=== PATIENT | male | born 1975 | race Caucasian/White ===

== ENCOUNTER 2019-03-31 20:19 | Emergency (ER) | payer MEDICAID, SELFPAY ==
[2019-03-31 20:22] VITALS: BP 119/78; PULSE 70; RESP 18; TEMP 36.6; O2SAT 97
--- NOTE | 2019-03-31 20:43 | W.ED.GENAD ---
Discharge Plan Disposition Patient Disposition: HOME Condition: Good Discharge Details Chief Complaint: Cellulitis Clinical Impression: Abscess of neck Primary Care Provider: Paulo Gresham ED Provider: Talia Fink Home Meds and New Rx's Prescriptions: New cephalexin [Keflex] 500 mg capsule 500 mg PO QID Qty: 20 RF: 0 Discharge Instructions Instructions: Cephalexin (By mouth), Abscess (ED) Additional Instructions: Encourage hydration. Tylenol and ibuprofen as needed for discomfort. Please keep the abscess covered. Allow this to continue to drain. It is incised today. Please take the Keflex as prescribed. Even if symptoms improve, please take the entire course. Please follow-up with primary care on Friday for reevaluation. If you develop spreading of the redness, increased pain, fever/chills or other new/worsening symptoms please seek care urgently once again. Referrals: Paulo Gresham MD [Primary Care Provider] - Discharge Data Discharge Date/Time-TO BE ENTERED AT DEPARTURE: 03/31/19 21:34 Medical Decision Making Patient is a 43-year-old male presents today with chief complaint of swelling and pain to left side of his neck. He reports that 5 days ago he noted a small area consistent with a pimple in this area. States that he did pop this initially. Reports that the following day he noted to be larger. He continued to use warm compresses and attempted to drain this but this is unsuccessful at that time. States that despite warm compresses and trying to treat this at home, the swelling has continued to increase. He has noted a scant amount of drainage today on a Band-Aid. Denies any fevers or chills. No difficulty swallowing. No change in voice, no deep breathing. Denies actually being able to feel this unless palpating the area. On exam, he has a 1.5 cm area consistent with abscess with surrounding cellulitis. I do not see any evidence of deep structure involvement. This is mobile and seems to be limited to the skin. Patient is afebrile reports is been afebrile at home. Patient I discussed risk/benefits as well as expected procedural steps of drainage. He voiced understanding and wished to proceed. Please see procedure note. This was done using 1% lidocaine plain. He tolerated this well. The area was probed with a curved hemostat to break up loculations and flushed with sterile saline. Thick yellow discharge was expressed. A wound culture was sent. Patient will be placed on Keflex. Encourage hydration. We discussed new/worsening symptoms that should prompt him to seek care urgently once again. Advise close follow-up with primary care for reevaluation. He will call them tomorrow to schedule follow-up within the next 48 hours. All his questions and concerns were addressed and he is in agreement this plan. Patient is low risk for MRSA infection will plan to cover with Keflex. HPI General Mode of arrival: ambulatory. Date/Time Provider Initiated Documentation: 03/31/19 20:42. Limitations to Documentation: no limitations. Information obtained by: patient and RN notes reviewed. History of Present Illness 43 year old M presents to the emergency department with the chief complaint of cellulitis left side of neck, described as mild, with intensity rated at 2. Quality is described as aching, and is localized to the neck. Patient reports no radiation. Patient started experiencing this day(s) (5) and it has been constant. No relieving factors improve symptom(s), No exacerbating factors reported . Patient notes no other symptoms.; denies chest pain, cough, fever/chills, nausea/vomiting and shortness of breath. Patient did receive the following treatments prior to arrival, none Related Data Home Medications Medication Instructions Recorded Confirmed cephalexin [Keflex] 500 mg PO QID #20 cap 03/31/19 Previous Rx's Medication Instructions Recorded cephalexin [Keflex] 500 mg PO QID #20 cap 03/31/19 Allergies Allergy/AdvReac Type Severity Reaction Status Date / Time No Known Allergies Allergy Unverified 03/31/19 20:25 General Stated Complaint: Cellulitis JO-ANN: 4 Review of Systems Constitutional Constitutional: Reports as per HPI, Denies chills and Denies fever(s) ENT Ears, Nose, Mouth, and Throat: Reports as per HPI, Denies change in voice, Denies dysphagia, Denies ear discharge, Denies otalgia, Denies hoarseness, Denies mouth pain, Denies nasal congestion, Denies sinus pressure, Denies sore throat and Denies throat swelling Cardiovascular Cardiovascular: Denies chest pain, Denies dyspnea and Denies dyspnea on exertion Respiratory Respiratory: Denies chest congestion, Denies cough, Denies hemoptysis, Denies pain on inspiration, Denies pain with cough, Denies dyspnea, Denies dyspnea on exertion, Denies stridor and Denies wheezing Gastrointestinal Gastrointestinal: Denies dysphagia Musculoskeletal Musculoskeletal: Reports as per HPI Integumentary/Breasts Skin/Breast: Reports as per HPI Neurologic Neurologic: Reports as per HPI, Denies sensory deficit and Denies paresthesias Allergic/Immunologic Allergic/Immunologic: Denies throat swelling and Denies wheezing [facility] Social History Smoking/Tobacco Use Status: Former Tobacco Use Drug use: Daily Substance use type: marijuana Do you feel safe in your relationship?: Yes Exam Const General: cooperative, healthy appearing, comfortable, no acute distress and well developed Nutritional Appearance: average body habitus and well nourished Orientation: alert and awake Neck Neck: not normal to visual inspection, full ROM, no lymphadenopathy, no meningeal signs, trachea midline, supple and tender (at abscess) Thyroid: thyroid normal and asymmetrical Carotids: normal carotid upstroke Lymphatic: no lymphadenopathy noted Neck images: 1. 1.5cm area of focal swelling that is fluctuant, erythematous, small area that appears to have been draining. Findings consistent with abscess. Resp Effort & Inspection: normal respiratory effort, able to speak in complete sentences and no respiratory distress Cardio Rate: regular rate Rhythm: regular rhythm Skin General skin exam: erythema, fluctuance and no hypertrophy Neuro General: alert and awake Cognition: normal cognition Speech: speech normal Gait: normal gait Sensory Exam: no sensory deficits noted Psych Appearance: grossly normal and well kempt Mental Status: mental status grossly normal Speech and Movement: speech and movement normal Course Vital Signs Vital signs: Vital Signs Temperature 36.6 C 03/31/19 20:22 Pulse 70 03/31/19 20:22 Respiratory Rate 18 03/31/19 20:22 Blood Pressure 119/78 03/31/19 20:22 Pulse Oximetry 97 03/31/19 20:22 Temperature 36.6 C 03/31/19 20:22 Temperature Source Skin 03/31/19 20:22 Pulse 70 03/31/19 20:22 Respiratory Rate 18 03/31/19 20:22 Respiratory Effort Non-Labored 03/31/19 20:25 Blood Pressure 119/78 03/31/19 20:22 Blood Pressure Position Sitting 03/31/19 20:22 Pulse Oximetry 97 10/02/19 20:22 Oxygen Delivery Method Room Air 03/31/19 20:22 Oxygen Flow Rate 0 03/31/19 20:22 Pain Level 2 03/31/19 20:22 Procedures Abscess I/D Site: Neck Side (if applicable): Left Sedation/analgesia: None Local Anesthetic: Lidocaine 1% Amount of anesthesia used (mL): 3 Technique: Incised with #11 Blade Amount of fluid expressed (mL): 3 Irrigation: Yes Packing used?: None
[2019-03-31] MEDS: Cephalexin 500 MG CAP PO ×2 (21:28)
== END 2019-03-31 21:34 | disposition home or self-care (01) ==
PROVIDERS: Emergency Provider Physician Assistant; PCP General Practice
DX: L02.11 Cutaneous abscess of neck (principal)
CPT/HCPCS: 10060; 87077; 99283; 87070; 87186; 87205

== ENCOUNTER 2019-12-18 09:15 | Emergency (ER) | payer MEDICAID, SELFPAY ==
[2019-12-18 09:21] VITALS: BP 112/72; PULSE 82; TEMP 37; O2SAT 96
--- NOTE | 2019-12-18 09:42 | ED.GENADUL_ITS ---
Discharge Plan Disposition Patient Disposition: HOME Condition: Stable Discharge Details Chief Complaint: Sorethroat Clinical Impression: Strep throat Primary Care Provider: None,None ED Provider: Yaa Mckinley Home Meds and New Rx's Prescriptions: New penicillin V potassium 500 mg tablet 500 mg PO BID Qty: 20 RF: 0 No Action cephalexin [Keflex] 500 mg capsule 500 mg PO QID Qty: 20 RF: 0 Discharge Instructions Instructions: Strep Throat (ED) Additional Instructions: Warm salt water rinses if needed. Use Motrin or Tylenol for aches if needed. Antibiotic as prescribed. Rest activities as tolerated. Be sure to replace your toothbrush on day 2 or 3 of treatment as well as day 10 as discussed. For any worsening, concerns or alarming symptoms have immediate reevaluation in the emergency room. Expect improvement in the next 2 to 3 days. Follow-up with PCP for recheck for any persistence of symptoms lasting greater than 3 to 5 days Medical Decision Making Pleasant 44-year-old patient exposed to his daughter whom he lives with who has positive strep throat and did test positive a few days ago. Patient has had onset of sore throat for the last 2 days with no associated difficulty breathing of shortness of breath or wheezing. Patient has no cough, shortness of breath. Patient denies fever chills. Patient's only complaint is sore throat and concern for likely strep given his exposure to daughter. Patient has been able to eat and drink without difficulty. Appears well-hydrated. Presents for concern of antibiotic. Again patient has no sign of complication due to strep. Patient does have mild pharyngeal erythema noted on exam and cervical lymphadenopathy otherwise has no complaints. Vital signs reviewed and are stable. We will plan to provide antibiotic for strep coverage. Will defer any strep testing as he has household contact with strep. Patient agrees to this plan of care. Discussed precautions, [place] toothbrush and start management at home. Patient also put on follow-up list for new PCP as he PCP retired and he currently has no local provider The patient was stable and requested discharge. Prior to discharge, my usual and customary return precautions were reviewed with the patient - this included follow-up instructions and reasons to return to the Emergency Department if conditions worsens, does not improve as expected, or other new concerns arise. HPI General Date/Time Provider Initiated Documentation: 12/18/19 09:26 . HPI Narrative: This is a 44-year-old patient presenting to the emergency room for complaints of sore throat. Patient reports onset of sore throat for the last 2 days. Denies any voice change or trismus. Patient does report that his daughter currently has strep throat at home. She had a positive strep test and is currently taking antibiotics. Patient denies any headache or dizziness, fevers or chills, malaise or body aches. Denies any cough, difficulty breathing shortness of breath or wheezing. Denies rash. Again patient is able to eat and drink but reports dryness and a sore throat noted on the right. Patient denies nausea, vomiting, diarrhea or bowel change. Patient denies any other concerns or complaints but is requesting antibiotics. Patient has no local PCP currently as his PCP recently retired and was unable to get antibiotics over the phone. Related Data Home Medications Medication Instructions Recorded Confirmed cephalexin [Keflex] 500 mg PO QID #20 cap 03/31/19 penicillin V potassium 500 mg PO BID #20 tab 12/18/19 Previous Rx's Medication Instructions Recorded cephalexin [Keflex] 500 mg PO QID #20 cap 03/31/19 penicillin V potassium 500 mg PO BID #20 tab 12/18/19 Allergies Allergy/AdvReac Type Severity Reaction Status Date / Time No Known Allergies Allergy Unverified 03/31/19 20:25 General Stated Complaint: Sorethroat JO-ANN: 5 Review of Systems All systems reviewed & are unremarkable except as noted in HPI and below PFSH Social History Smoking/Tobacco Use Status: Former Tobacco Use Drug use: Daily Substance use type: marijuana Do you feel safe in your relationship?: Yes Exam Narrative Exam Narrative: CONST: Healthy appearing patient, in no acute distress. Well hydrated. Alert and oriented. HENMT: Head nomocephalic, normal to inspection. Atraumatic. Hearing grossly normal. External ear canals normal bilaterally. Mild erythema of the left TM. Pharyngeal erythema noted without exudates. Uvula is midline. No asymmetry. No significant tonsillar swelling. Tongue appears normal. EYES: General normal appearance. Alignment normal. Eyelids normal. Conjunctiva normal. NECK: Normal visual inspection. FROM. Trachea midline. No Midline tenderness. cervical lymphadenopathy noted bilaterally CHEST: Normal insepection of the chest. RESP: Normal respiratory effort. Speaking full sentences. No cough. No audible wheezing. No retractions. Breath sounds clear, full and equal bilaterally. No wheezing, rhonchi or rales. CARDIO: No JVD. No murmur, regular rate and rhythm. MUSCULOSKELETAL: Normal Gait. FROM of all extremities. SKIN: Normal. Dry. No rashes. NEURO: Alert and awake. Speech clear. PSYCH: Normal affect. Cooperative. Course Vital Signs Vital signs: Vital Signs Temperature 37.0 C 12/18/19 09:21 Pulse 82 12/18/19 09:21 Blood Pressure 112/72 12/18/19 09:21 Pulse Oximetry 96 12/18/19 09:21 Temperature 37.0 C 12/18/19 09:21 Temperature Source Temporal Artery Scan 12/18/19 09:21 Pulse 82 12/18/19 09:21 Blood Pressure 112/72 12/18/19 09:21 Blood Pressure Position Sitting 12/18/19 09:21 Pulse Oximetry 96 12/18/19 09:21 Oxygen Delivery Method Room Air 12/18/19 09:21 Oxygen Flow Rate 0 12/18/19 09:21 Pain Level 3 12/18/19 09:21
== END 2019-12-18 09:46 | disposition home or self-care (01) ==
PROVIDERS: Emergency Provider Physician Assistant
DX: J02.0 Streptococcal pharyngitis (principal); Z87.891 Personal history of nicotine dependence
CPT/HCPCS: 87880; 99283

== ENCOUNTER 2020-01-19 15:32 | Emergency (ER) | payer MEDICAID, SELFPAY ==
[2020-01-19 15:36] VITALS: BP 130/80; PULSE 69; RESP 14; TEMP 36.7; O2SAT 97
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
== END 2020-01-19 17:19 | disposition home or self-care (01) ==
PROVIDERS: Emergency Provider Emergency Medicine
DX: S69.91XA Unspecified injury of right wrist, hand and finger(s), initial encounter (principal); R93.7 Abnormal findings on diagnostic imaging of other parts of musculoskeletal system; Y04.0XXA Assault by unarmed brawl or fight, initial encounter
CPT/HCPCS: 29125; 99283; 73140; L3807

== ENCOUNTER 2023-10-30 09:54 | Observation (INO) | payer MEDICAID, SELFPAY ==
[2023-10-30] VITALS (10 sets, daily range): BP systolic 94–122; BP diastolic 54–95; PULSE 56–90; RESP 14–20; TEMP 36–37.2; O2SAT 94–100; BMI 25.8
--- NOTE | 2023-10-30 10:30 | DI.CT_ITS ---
Exam(s) CT ABDOMEN PELVIS W EXAM: CT ABDOMEN PELVIS W CLINICAL HISTORY: concern for rectal abscess v thrombosed hemorrhoid. TECHNIQUE: Imaging Protocol: Axial computed tomography images with coronal and sagittal reformatted images were created and reviewed CONTRAST MATERIAL: Intravenous: Omnipaque 350 Contrast volume:100 ml Oral: no COMPARISON: No exams were available for comparison FINDINGS: ABDOMEN and PELVIS: Lung Bases: No acute findings. Liver: Normal density. No measurable mass. Gallbladder and biliary tract: No radiodense calculus or biliary dilation. Pancreas: Normal density. No abnormal calcifications or inflammatory process. No evidence of mass. Spleen: Normal. Kidneys: Normal size, contour and axis. No radiodense stones. No obstructive uropathy. No suspicious masses seen. Adrenal glands: No masses seen. Vasculature: Abdominal aorta non-dilated. Soft tissues: Posterior perianal abscess measuring 2.4 x 3.1 by 4 cm. Bladder: No gross wall thickening. No calculi.No focal mass. Bowel: No obstruction. No bowel wall thickening. Appendix normal. Peritoneal cavity: No ascites. No focal collection or mesenteric inflammatory response. Bones: Unremarkable for age. Reproductive organs: Within normal limits. Lymph nodes: Unremarkable. IMPRESSION:: 4 centimeter perianal abscess. Findings called to Dr. Howell of the emergency department. RADIATION DOSE DELIVERED: 792.01mGy.cm Total DLP DATA REPOSITORY: All CT scans at this facility are submitted to the National Radiology Data Registry (NRDR) Dose Index Registry (DIR) with the [employer] ([employer]). RADIATION OPTIMIZATION: All CT scans at this facility use at least one of these dose optimization te chniques: automated exposure control; mA and/or kV adjustment per patient size (includes targeted exa ms where dose is matched to clinical indication); or iterative reconstruction.
--- NOTE | 2023-10-30 10:40 | ED.GENADUL_ITS ---
Discharge Plan Disposition Patient Disposition: Admit to [facility] Condition: Stable Discharge Details Chief Complaint: Orthopedic Clinical Impression: Perirectal abscess Primary Care Provider: None,None ED Provider: Juanjo Howell Home Meds and New Rx's Prescriptions: No Action No Known Home Meds HPI General Date/Time Provider Initiated Documentation: 10/30/23 10:03 . HPI Narrative: 48-year-old male presents with 1 week of perianal discomfort, feels a swelling in that region. Denies fevers chills nausea vomiting Related Data Home Medications Medication Instructions Recorded Confirmed Unknown [No Known Home Meds] 01/19/20 10/30/23 Allergies Allergy/AdvReac Type Severity Reaction Status Date / Time No Known Allergies Allergy Unverified 10/30/23 10:00 General Stated Complaint: Orthopedic JO-ANN: 4 Review of Systems Narrative: Review of Systems Constitutional: negative Eyes: negative ENT: negative Cardiovascular: negative Respiratory: negative Gastrointestinal: Perirectal pain : negative Musculoskeletal: negative Skin: negative Neurologic: negative Psych: negative Exam Narrative Exam Narrative: Physical Examination General: alert, awake, cooperative, resting comfortably, no acute distress HEENT: normocephalic, atraumatic; PERRL, EOM intact, conjunctiva normal; no nasal discharge; moist mucous membranes, oral and pharyngeal mucosa normal, tolerating secretions Neck: supple, trachea midline; full ROM Chest: normal to inspection Respiratory: normal respiratory effort, speaking in full sentences, clear to auscultation, no wheezing, rales or rhonchi Cardiac: regular rate, regular rhythm, S1S2 intact, no murmurs rubs or gallops GI: abdomen soft, non-tender, non-distended; no palpable mass or hepatosplenome alexis; 3 cm firm flesh-colored mildly ballotable mass at 6 o'clock position perianal region with extension into rectal vault, no surrounding induration or erythema Skin: no lesions, rashes or trauma appreciated Neuro: AAOx3, normal speech, moving all extremities Psych: Appropriate mood and affect Course Vital Signs Vital signs: Vital Signs Pulse 90 10/30/23 09:57 Respiratory Rate 18 10/30/23 09:57 Blood Pressure 122/95 H 10/30/23 09:57 Pulse Oximetry 100 10/30/23 09:57 Pulse 90 10/30/23 09:57 Respiratory Rate 18 10/30/23 09:57 Respiratory Effort Normal, Non-Labored 10/30/23 10:00 Blood Pressure 122/95 H 10/30/23 09:57 Blood Pressure Position Sitting 10/30/23 09:57 Pulse Oximetry 100 10/30/23 09:57 Oxygen Delivery Method Room Air 10/30/23 09:57 Oxygen Flow Rate 0 10/30/23 09:57 Pain Level 6 10/30/23 09:57 Medical Decision Making 48-year-old male presents with 1 week of perianal discomfort,3 cm firm flesh- colored mildly ballotable mass at 6 o'clock position perianal region with extension into rectal vault, no surrounding induration or erythema; consider thrombosed external hemorrhoid versus perianal abscess versus pararectal abscess. Will obtain screening labs, CT abdomen pelvis to assess extent of peritoneal findings. Afebrile nontoxic hemodynamically stable. 12: 35 CT evidence of perirectal abscess. Starting on Zosyn, fluids, NPO. Discussed case with surgeon Dr. Waggoner for evaluation for operative I&D Quality:SDOH Health Related Social Needs: No Data to Display PFSH All Active Problems (Updated 10/30/23 @ 12:36 by Juanjo Howell MD) Perirectal abscess (Acute) Social History Smoking/Tobacco Use Status: Former Tobacco Use Smoking risk assessment performed?: Yes Alcohol Intake: current Drug use: Daily Substance use type: marijuana Do you feel safe at home: Yes Do you feel safe in your relationship?: Yes
[2023-10-30 10:57] LABS: Abs Immature Grans 0.04 10^3/uL (0.0-0.06); Absolute Eosinophil Count 0.04 10^3/uL (0.0-0.7); Absolute Lymphocyte Count 2.09 10^3/uL (1.2-3.4); Absolute Monocyte Count 1.09 10^3/uL (0.1-0.8); Absolute Neutrophil Count 10.86 10^3/uL (1.2-6.7); Basophils % 0.1 %; Eosinophils % 0.3 %; HCT 39.4 % (40.0-50.0); Immature Grans % 0.3 %; Lymphocytes % 14.8 %; MCH 31.3 pg (27.0-33.0); MCV 95 fL (80-95); MPV 9.4 fL (8.0-11.0); Monocytes % 7.7 %; Neutrophils % 76.8 %; Platelet Count 393 10^3/uL (130-400); RBC 4.16 10^6/uL (4.36-5.78); RDW 13.2 % (11.8-14.1); RDW-SD 46.1 fL; WBC 14.14 10^3/uL (4.4-10.8)
[2023-10-30 11:01] LABS: Absolute Basophil Count 0.01 10^3/uL (0.0-0.2)
[2023-10-30 11:14] LABS: ALT 41 U/L (16-63); AST 23 U/L (15-37); Albumin 3.7 g/dL (3.4-5.0); Alkaline Phosphatase 157 U/L (46-116); BUN 14 mg/dL (7-18); Bilirubin, Total 0.5 mg/dL (0.2-1.0); CREATININE 1.1 mg/dL (0.70-1.30); Chloride 105 mmol/L (98-107); Estimated GFR 81.78 (mL/min/1.73m2); Glucose 118 mg/dL (74-106); Potassium 4.2 mmol/L (3.5-5.1); Sodium 143 mmol/L (136-145); Total Protein 7.4 g/dL (6.4-8.2)
[2023-10-30] MEDS: Normal Saline - Diluent 50 ML VIAL IJ (11:47)
[2023-10-30] MEDS: Omnipaque 350 MG/ML 500 ML BTL-Imaging package IJ (11:49)
[2023-10-30] MEDS: Normal Saline 1,000 ML 1000 ML IV (12:45)
[2023-10-30] MEDS: PIPERACILLIN/TAZO 3.375 GM in Normal Saline 50 ML IVPB (12:45)
--- NOTE | 2023-10-30 13:00 | ANES.PREOP_ITS ---
General Info Date of Service Date Performed: 10/30/23 Height: 5 ft 6 in Weight: 72.575 kg Body Mass Index (BMI): 25.8 Surgical Procedure: Operation Date: 10/30/23 13:10 Proposed Procedure Side Surgeon p Anorectal EUA w/ I&D Abcsess Trevor Waggoner MD Meds Allergies and Home Medications Allergies Allergy/AdvReac Type Severity Reaction Status Date / Time No Known Allergies Allergy Unverified 10/30/23 10:00 Home Medication Medication Instructions Recorded Unknown [No Known Home Meds] 01/19/20 Current Visit Medications: Current Medications Generic Name Dose Route Start Last Admin Trade Name Freq PRN Reason Stop Dose Admin Piperacillin Sod/Tazobactam 50 mls @ 100 mls/hr 10/30/23 12:33 10/30/23 12:45 Sod 3.375 gm/ Sodium Chloride IVPB 10/30/23 13:02 100 mls/hr NOW ONE Administration Sodium Chloride 1,000 mls @ 1,000 mls/hr 10/30/23 12:33 10/30/23 12:45 Saline 1000ml Bag IV 10/30/23 13:32 1,000 mls/hr BOLUS ONE Administration Iohexol 500 ml 10/30/23 12:00 10/30/23 11:49 Omnipaque 350 Mg/Ml 500 Ml Btl-Imaging Package IJ 11/29/23 23:59 100 ml DIRECTED RALPH Administration Sodium Chloride 50 ml 10/30/23 12:00 10/30/23 11:47 Normal Saline - Diluent 50 Ml Vial IJ 50 ml .FOR DI USE RALPH Administration PFSH Active Problems Active Problems: Problem Status Onset Code Perirectal abscess K61.1 Tobacco Smoking/Tobacco Use Status: Former Tobacco Use Alcohol Alcohol Intake: current Substance Use Substance use: Daily Substance use type: marijuana Vital Signs and Lab Results Vital Signs Most Recent Vital Signs in EMR: Most Recent Vital Signs Temp Pulse Resp BP Pulse Ox 37.0 C 90 18 122/95 H 100 10/30/23 10:51 10/30/23 09:57 10/30/23 09:57 10/30/23 09:57 10/30/23 09:57 Lab Results 10/30/23 10:48 10/30/23 10:48 Blood Type / Crossmatch: 2 No Data to Display Complete Blood Count: 2 White Blood Count 14.14 10^3/uL (4.4-10.8) H 10/30/23 10:48 Red Blood Count 4.16 10^6/uL (4.36-5.78) L 10/30/23 10:48 Hemoglobin 13.0 g/dL (13.5-17.5) L 10/30/23 10:48 Hematocrit 39.4 % (40.0-50.0) L 10/30/23 10:48 Platelet Count 393 10^3/uL (130-400) 10/30/23 10:48 Complete Metabolic Panel: 2 Sodium 143 mmol/L (136-145) 10/30/23 10:48 Potassium 4.2 mmol/L (3.5-5.1) 10/30/23 10:48 Chloride 105 mmol/L (98-107) 10/30/23 10:48 Carbon Dioxide 28.0 mmol/L (21.0-32.0) 10/30/23 10:48 BUN 14 mg/dL (7-18) 10/30/23 10:48 Creatinine 1.1 mg/dL (0.70-1.30) 10/30/23 10:48 Est GFR (CKD-EPI 2020) 81.78 (mL/min/1.73m2) 10/30/23 10:48 Calcium 9.0 mg/dL (8.5-10.1) 10/30/23 10:48 Albumin 3.7 g/dL (3.4-5.0) 10/30/23 10:48 Glucose 118 mg/dL (74-106) H 10/30/23 10:48 Liver Function Panel: 2 Alanine Aminotransferase (ALT/SGPT) 41 U/L (16-63) 10/30/23 10: 48 Aspartate Amino Transf (AST/SGOT) 23 U/L (15-37) 10/30/23 10:48 Coagulation Panel: 2 No Data to Display Cardiac Panel: 2 No Data to Display Arterial Blood Gas: 2 No Data to Display Venous Blood Gas: 2 No Data to Display Pancreas Panel: 2 No Data to Display Thyroid Panel: 2 No Data to Display Infectious Disease: 2 No Data to Display Blood Cultures: 2 No Data to Display Toxicology Panel: 2 No Data to Display Anesthesia Assessment and Plan Anesthesia History Personal History: No History of Anesthesia Complications Family History: No Family History of Anesthesia Complications Exercise Tolerance Exercise Tolerance: Metabolic Equivalents>4 Pertinent Negatives Pertinent Negatives: No Major Cardiovascular Symptoms or Complaints, No Major Pulmonary Symptoms or Complaints and No History of CVA/TIA Cardiac & Pulmonary Exam Cardiac Exam: Normal S1/S2 Heart Sounds Pulmonary Exam: Clear Bilateral Breath Sounds Implantable Cardiac Device Does patient have a Pacemaker or an ICD?: No Airway Exam Known Difficult Airway: No Mallampati Class: 1 Mouth Opening: Normal (> 3cm) Thyromental Distance: Greater than 3 cm Facial Hair: Full [place] Neck Range of Motion: Full ROM Neck Circumference: Normal Teeth Condition: Normal Dentition and Generalized Poor Dentition ASA Classification ASA Score: ASA 2 Emergency Case?: No NPO Status NPO Status: NPO Clears >2 hours, Solids >8 hours (Powdered creamer and coffee this morning at 0700) Anesthesia Plan Resuscitation Status: Full Code Anesthesia Technique: General Anesthesia Airway Planned: Natural Airway (To escalate airway if necessary) Monitors Used: Standard Monitors
--- NOTE | 2023-10-30 13:11 | HPE_ITS ---
Date of service: 10/30/23 Time of Service: 13:11 Assessment and Plan Assessment and plan (1) Perirectal abscess: Status: Acute Assessment and plan: We reviewed the natural history of perirectal perianal abscesses, and the role of surgical drainage and their treatment. He is already been started on some broad-spectrum antibiotics, so we will make arrangements to move to the operating room urgently. Explained that we will also conduct an anorectal exam under anesthesia to see if I can identify any specific source of the abscess origin. I explained that he will be left with a wound that will require some packing, and the duration of the changing of the packing will be dependent upon the ultimate size and configuration of the abscess as well as the drainage location. I think he has a very good understanding of all this. Is able to provide informed consent, and will move to the operating room soon as we can. History of Present Illness History of Present Illness Chief Complaint: Perianal pain Narrative: Eliazar is 48 years old. He comes to the emergency department today after approximately 4 days of increasing discomfort around his rectum. He described it first as a sense of pressure or fullness, which became progressively more uncomfortable. Over the past 48 hours or so, the skin surrounding his anus has become increasingly painful, and tender. In the emergency department, he was found to have leukocytosis around 14,000. He had tenderness around his anus consistent with a perianal abscess, and underwent CT scan of the abdomen and pelvis that confirmed the presence of a posterior perianal abscess. He reports multiple lipomas, but otherwise denies any significant past medical history He has no allergies He takes no medications Review of Systems Constitutional Constitutional: Denies body ache(s), Denies fever(s) and Denies weight loss Eyes Eyes: Reports system reviewed and no additional complaints, except as documented ENT Ears, Nose, Mouth, and Throat: Reports system reviewed and no additional complaints, except as documented Cardiovascular Cardiovascular: Denies chest pain and Denies dyspnea Respiratory Respiratory: Denies chest congestion, Denies cough and Denies dyspnea Gastrointestinal Gastrointestinal: Denies abdominal pain, Denies bloating, Denies change in bowel habits, Denies nausea and Denies vomiting Musculoskeletal Musculoskeletal: Reports system reviewed and no additional complaints, except as documented Neurologic Neurologic: Reports system reviewed and no additional complaints, except as documented Psychiatric Psychiatric: Reports system reviewed and no additional complaints, except as documented Hematologic/Lymphatic Hematologic/Lymphatic: Denies easy bleeding and Denies easy bruising Allergic/Immunologic Allergic/Immunologic: Reports system reviewed and no additional complaints, except as documented PFSH All Active Problems Perirectal abscess (Acute) Social History Smoking/Tobacco Use Status: Former Tobacco Use Smoking risk assessment performed?: Yes Alcohol Intake: current Drug use: Daily Substance use type: marijuana Do you feel safe at home: Yes Do you feel safe in your relationship?: Yes Meds Allergies and Home Medications Allergies Allergy/AdvReac Type Severity Reaction Status Date / Time No Known Allergies Allergy Unverified 10/30/23 10:00 Home Medications Medication Instructions Recorded Confirmed Type Unknown [No Known Home Meds] 01/19/20 10/30/23 History Exam Const General: cooperative, healthy appearing and comfortable Orientation: alert, awake and oriented x3 HENMT Other: Lipoma on the left parietal region Neck Neck: normal visual inspection and full ROM Chest Chest: normal inspection of the chest Cardio Rate: regular rate Rhythm: regular rhythm Heart Sounds: S1 normal and S2 normal GI Inspection: normal to inspection and non-distended Palpation: soft and nontender Rectal Exam: tenderness Other: Lipomas along the right costal margin Neuro General: patient alert, patient awake and patient oriented x3 Results Labs 10/30/23 10:48 10/30/23 10:48 Labs: Laboratory Results - last 24 hr 10/30/23 10:48 WBC 14.14 H RBC 4.16 L Hgb 13.0 L Hct 39.4 L MCV 95 MCH 31.3 MCHC 33.0 RDW 13.2 Plt Count 393 MPV 9.4 Immature Gran % 0.3 Neutrophils % 76.8 Lymphocytes % 14.8 Monocytes % 7.7 Eosinophils % 0.3 Basophils % 0.1 Nucleated RBC % 0.0 Absolute Neutrophils 10.86 H Absolute Lymphocytes 2.09 Absolute Monocytes 1.09 H Absolute Eosinophils 0.04 Absolute Basophils 0.01 Sodium 143 Potassium 4.2 Chloride 105 Carbon Dioxide 28.0 Anion Gap 10.0 BUN 14 Creatinine 1.1 Est GFR (CKD-EPI 2020) 81.78 Glucose 118 H Calcium 9.0 Total Bilirubin 0.5 AST 23 ALT 41 Alkaline Phosphatase 157 H Total Protein 7.4 Albumin 3.7 Last Vital Signs Temp 98.6 F 10/30/23 10:51 Pulse 90 10/30/23 09:57 Resp 18 10/30/23 09:57 BP 122/95 H 10/30/23 09:57 Pulse Ox 100 10/30/23 09:57 Time Spent Time spent with Patient: 40-54 minutes Time was spent: preparing to see the patient(eg.review tests), referring, communicating with other health lead care manager, indepentently interpreting results, counseling the patient and care coordination
--- NOTE | 2023-10-30 14:50 | W.PM.OP ---
Date of service: 10/30/23 Time of Service: 14:50 Operative Note Operative Note DATE OF PROCEDURE: 10/30/23 PRE-OP DIAGNOSIS: Perianal abscess POST-OP DIAGNOSIS: same PROCEDURE: Anorectal exam under anesthesia with incision and drainage of perianal abscess SURGEON: Trevor Waggoner ANESTHESIA TYPE: Local By Surgeon and General:No Airway Refer to Anesthesia Record ESTIMATED BLOOD LOSS: 5 PATHOLOGY: other (Perianal abscess for Gram stain and culture) COMPLICATIONS: None Patient was transported to: PACU Patient's condition: stable Indications: Eliazar is a 48-year-old male with painful and tender perianal abscess Findings: Posterior perianal abscess Procedure Description: Eliazar was brought to the operating room, and assisted onto the OR table. Routine perioperative timeout was performed prior to initiation of the procedure. Next, anesthesia was induced, and he was assisted to the lithotomy position. Great care was taken to ensure that he was supported and padded appropriately. Next, the perineum was prepped and draped in usual fashion. External anorectal exam demonstrated a fluctuant posterior abscess, slightly to the right of the midline. Otherwise visual exam was normal. Digital rectal exam was performed. [place] like maybe there was some fluctuance along the posterior wall of the rectum, but no masses or any other abnormalities were appreciated. I did not see any evidence of fistula or fissures. I established a generous field block using Exparel for local anesthetic. A cruciate incision over the most fluctuant point of the abscess. There is immediate drainage of foul-smelling purulent fluid. Specimens were obtained for Gram stain and culture. Hemostat was used to gently enlarge the incision site, and some internal loculations were disrupted manually. Wound was irrigated clean. It was hemostatic. It was then packed with some quarter inch iodoform packing, and an ABD pad was applied. The patient was then moved back to the supine position and the anesthetic was allowed to wear off. he was then transferred to the recovery unit.
--- NOTE | 2023-10-30 15:05 | W.ANESPOSTOP ---
Postoperative Evaluation Date, Time and Location Date Performed: 10/30/23 Time Performed: 15:05 Patient Location: PACU Vital Signs Most Recent Imported Vital Signs: Most Recent Vital Signs Temp Pulse Resp BP Pulse Ox 36.8 C 71 14 103/68 100 10/30/23 14:46 10/30/23 14:46 10/30/23 14:46 10/30/23 14:46 10/30/23 14:46 Pain Score Most Recent Pain Score: Most Recent Pain Score Pain Level 6 10/30/23 09:57 Assessment Mental Status: Awake (Alert & Oriented to Patient Baseline) Airway and Respiratory Function: Patent airway with normal (patient baseline) respiratory exam Cardiovascular Function: Hemodynamically Stable Hydration Status: Adequately Hydrated Nausea & Vomiting: No Nausea or Vomiting Pain: Pt. Denies Any Pain (No pain per patient at this time) Peripheral Nerve Block: Patient did not receive a nerve block
--- NOTE | 2023-10-30 15:38 | NUR.NOTE ---
Nursing Note: admitted from PACU, report received from SONIA BOURGEOIS. Pt denies pain at this time. VS WNL, tolerating liquids and toast at this time. with no c/o nausea. scant drainage to wound on puma area.
--- NOTE | 2023-10-30 15:41 | PHA.REVIEW2 ---
Pharmacy Admission Review Admission Clinical Review Admission Pharmacy Review: (Updated 10/30/23 @ 12:36 by Juanjo Howell MD) Perirectal abscess (Acute) No Known Allergies Allergy (Unverified 10/30/23 10:00) Resuscitation Status Full Code Height 5 ft 6 in Weight 72.575 kg Pharmacy Admission Review Renal Dosing Renal Dosing: BUN 14 mg/dL (7-18) 10/30/23 10:48 Creatinine 1.1 mg/dL (0.70-1.30) 10/30/23 10:48 Medications needing adjustments: Reviewed (CrCl 82.47 mL/min) Anticoagulation Anticoagulation: Hgb 13.0 g/dL (13.5-17.5) L 10/30/23 10:48 Hct 39.4 % (40.0-50.0) L 10/30/23 10:48 Plt Count 393 10^3/uL (130-400) 10/30/23 10:48 Creatinine 1.1 mg/dL (0.70-1.30) 10/30/23 10:48 DVT Prophylaxis: Reviewed Medications: Enoxaparin (40mg daily) Opiate Usage Evaluate Pain Scale/Pains Meds: Reviewed (PRN hydromorphone) Scheduled Bowel Reg ordered if on Opiates?: No Relevant Labs Relevant Labs: Sodium 143 mmol/L (136-145) 10/30/23 10:48 Potassium 4.2 mmol/L (3.5-5.1) 10/30/23 10:48 Chloride 105 mmol/L (98-107) 10/30/23 10:48 Electrolytes, C-Reactive P, ESR: Reviewed (Hgb 13, glucose 118) Cardiac Review BP, HR, EF%: Reviewed (HR/BP WNL) QTc Review QTc: Reviewed (No EKG on file) IV to PO Switch IV Medications: Reviewed (ondansetron) Home Meds Home Med List reviewed: Reviewed Current Meds Current Medication Order Review: Reviewed Pharmacy Antibiotic Review Pharmacy Antibiotic Activity: C/S review and Reviewed, no change Comments: POD #0 for perianal abscess drainage. Patient received 1 dose of Zosyn pre-op and is now on Augmentin 875/125 PO BID. WBC elevated at 14. Abscess cultures pending.
[2023-10-30] MEDS: Acetaminophen 500 MG TAB 1000 MG PO ×2 (16:53→23:16)
[2023-10-30] MEDS: Enoxaparin 40 MG/0.4 ML SYR SC (16:55)
[2023-10-30] MEDS: Amoxicillin 875/Clav. 125 TAB PO (19:43)
[2023-10-30] MEDS: Normal Saline Flush 10 ML SYR IVP (19:44)
[2023-10-31] MEDS: Acetaminophen 500 MG TAB 1000 MG PO (03:57)
[2023-10-31 04:02] VITALS: BP 133/115; PULSE 56; RESP 16; TEMP 35.3; O2SAT 97
[2023-10-31 06:58] LABS: HCT 38.6 % (40.0-50.0); HGB 13.5 g/dL (13.5-17.5); MCH 32.1 pg (27.0-33.0); MCV 92 fL (80-95); MPV 9.7 fL (8.0-11.0); Platelet Count 409 10^3/uL (130-400); RDW 12.9 % (11.8-14.1); RDW-SD 43.5 fL; WBC 16.65 10^3/uL (4.4-10.8)
[2023-10-31 08:06] VITALS: BP 126/84; PULSE 64; RESP 16; TEMP 35.7; O2SAT 100
[2023-10-31] MEDS: Psyllium PKT 1 EACH PO (08:52)
[2023-10-31] MEDS: Amoxicillin 875/Clav. 125 TAB PO (08:52)
[2023-10-31] MEDS: Normal Saline Flush 10 ML SYR IVP (08:52)
--- NOTE | 2023-10-31 09:21 | W.PM.PROGNOT ---
Date of Service Date of service: 10/31/23 Time of Service: 09:21 Assessment and Plan Assessment and plan (1) Perirectal abscess: Status: Acute Assessment and plan: Eliazar tolerated the removal of the packing well with some discomfort. Discussed that he would benefit from having a PCP, who could follow up with him on a more regular basis and that they would also be able to set him up with regular screening tests such as Colonoscopy and lung cancer screening given his smoking history. Will continue with 4 more days of Augmentin. Discussed ensuring the wound is clean with showering and sitz baths intermittently through the day and also following BMs. WBC is noted to be elevated this morning. Given that Eliazar is feeling much better will proceed with d/c and close out patient follow up on Friday. Subjective Subjective Interval history since last seen: Arrive with patient resting comfortably in bed. He states he is feeling significantly better this morning. He denies any chills, night sweats or fevers. He is eager to be d/c home, however expresses concern that he may have cancer. Exam Const General: cooperative, healthy appearing and comfortable Orientation: alert and oriented x3 Resp Effort & Inspection: normal respiratory effort, no audible wheezes and no cough GI Other: Packing was removed from I&D site. Wound was cleansed with sterile saline and dressed with ABD pad. Objective Last Vital Signs Temp 35.7 C L 10/31/23 08:06 Pulse 64 10/31/23 08:06 Resp 16 10/31/23 08:06 BP 126/84 10/31/23 08:06 Pulse Ox 100 10/31/23 08:06 Laboratory Results - last 24 hr 10/30/23 10/31/23 10:48 06:22 WBC 14.14 H 16.65 H RBC 4.16 L 4.20 L Hgb 13.0 L 13.5 Hct 39.4 L 38.6 L MCV 95 92 MCH 31.3 32.1 MCHC 33.0 35.0 RDW 13.2 12.9 Plt Count 393 409 H MPV 9.4 9.7 Immature Gran % 0.3 Neutrophils % 76.8 Lymphocytes % 14.8 Monocytes % 7.7 Eosinophils % 0.3 Basophils % 0.1 Nucleated RBC % 0.0 Absolute Neutrophils 10.86 H Absolute Lymphocytes 2.09 Absolute Monocytes 1.09 H Absolute Eosinophils 0.04 Absolute Basophils 0.01 Sodium 143 Potassium 4.2 Chloride 105 Carbon Dioxide 28.0 Anion Gap 10.0 BUN 14 Creatinine 1.1 Est GFR (CKD-EPI 2020) 81.78 Glucose 118 H Calcium 9.0 Total Bilirubin 0.5 AST 23 ALT 41 Alkaline Phosphatase 157 H Total Protein 7.4 Albumin 3.7 Time Spent with Patient Time Spent with Patient: <25 minutes Time was spent: preparing to see the patient(eg.review tests), obtaining and/or reviewing separately otained hiistory and counseling the patient
--- NOTE | 2023-10-31 09:30 | DSE_ITS ---
Date of service: 10/31/23 Time of Service: 09:30 DS: Diagnosis Discharge Diagnosis (1) Perirectal abscess: Status: Acute Discharge Plan Disposition Patient Disposition: Home Condition: Good Discharge Details Reason For Visit: Perianal Abscess Admit Date/Time: 10/30/23 14:48 Admit Provider: Trevor Waggoner Attending Provider: Trevor Waggoner Primary Care Provider: None,None Hospital Course Hospital Course: 48 y/o male presented to the ER with complaints of increasing pain around his anus that was associated with pressure and fullness sensation over the previous 48 hours. On exam he was found to have a puma-rectal abscess. He was taken to the OR for I&D, at which time packing was placed. Started on a course of Augmentin, with significant improvement in his complaints of discomfort. WBC continues to be elevated, however subjectively and on exam the patient is feeling much better. Will continue course of Augmentin for an additional 4 more days. D/C home, with follow up on 11/03/23 at 10:[address] Jaeger in the clinic. He will need to go to the lab prior to this appt for recheck of CBC-D. Home Meds and New Rx's Prescriptions: New amoxicillin-pot clavulanate 875-125 mg Tablet 1 tab PO BID 4 Days Qty: 8 0RF Discharge Instructions Instructions: Sitz Bath (DC), Rectal Abscess (DC), Abscess Incision and Drainage (DC) Additional Instructions: Signs or symptoms of infection can include increased redness, pain, swelling, fevers, chills or feeling unwell. If you begin to have any of these symptoms or the sensation of fullness and pressure returning near your anus, please call [facility] at [phone] and request to speak to the on-call general surgeon. Please keep the area clean by following the attached instructions for sitz bath and also showering. You should do this several times a day and especially after you have a bowel movement. Referrals: Dionna Jaeger DO [OSTEOPATHIC DOCTOR] - 11/03/23 10:30 am (Will need to have labs drawn prior to appt ) Activity:: Activity as Tolerated Equipment/Supplies:: No Equipment Needed Diet:: Normal Diet Discharge Orders Discharge Orders: Discharge Order (Routine); Ordered 10/31/23 Ordered By: Serina Thad DS: Summary Time Spent with Patient providing and/or coordinating discharge services: Less than 30 minutes Status at Discharge Functional status at discharge: independent ambulation Overall status at discharge: patient is back to baseline Mental Status: mental status grossly normal Speech and Movement: speech and movement normal Mood: congruent mood Affect: normal affect Quality:SDOH Health Related Social Needs: No Data to Display Exam Const General: cooperative, healthy appearing and comfortable Orientation: alert and oriented x3 Resp Effort & Inspection: normal respiratory effort, no audible wheezes and no cough GI Other: Packing was removed from I&D site. Wound was cleansed with sterile saline and dressed with ABD pad. Psych Mental Status: mental status grossly normal Speech and Movement: speech and movement normal Mood: congruent mood Affect: normal affect DS: Data Vitals/I&O Vitals and I&O: Vital Signs Temperature 35.7 C L 10/31/23 08:06 Temperature Source Tympanic 10/31/23 08:06 Pulse 64 10/31/23 08:06 Pulse Rhythm Regular 10/31/23 04:15 Respiratory Rate 16 10/31/23 08:06 Respiratory Effort Normal, Non-Labored 10/31/23 09:00 Respiratory Depth Normal 10/31/23 09:00 Respiratory Pattern Normal 10/31/23 09:00 Blood Pressure 126/84 10/31/23 08:06 Blood Pressure Position Sitting 10/30/23 09:57 Pulse Oximetry 100 10/31/23 08:06 Respiratory End-tidal CO2 32 10/30/23 14:46 Oxygen Delivery Method Room Air 10/31/23 08:06 Oxygen Flow Rate 0 10/31/23 08:06 Pain Level 2 10/31/23 08:06 Comment 97.8 F 10/30/23 19:42 Intake & Output 10/30/23 10/31/23 10/31/23 18:59 06:59 18:59 Intake Total 1660 / 1660 Output Total Balance 1655 / 1655 Weight 72.575 kg Intake: IV 1060 / 1060 Oral 600 / 600 Output: Estimated Blood Loss Other: Urine Color Straw Urine Appearance Clear Clear Urine Odor Normal Comment pt reports a void at this time. unwitnessed by staff. a urinal was provided after this instance. Emesis Description None Voiding Methods Toilet Data Completed and Pending Labs on day of discharge: Labs from last 24 hours 10/31/23 10/30/23 06:22 10:48 WBC 16.65 H 14.14 H RBC 4.20 L 4.16 L Hgb 13.5 13.0 L Hct 38.6 L 39.4 L MCV 92 95 MCH 32.1 31.3 MCHC 35.0 33.0 RDW 12.9 13.2 Plt Count 409 H 393 MPV 9.7 9.4 Immature Gran % 0.3 Neutrophils % 76.8 Lymphocytes % 14.8 Monocytes % 7.7 Eosinophils % 0.3 Basophils % 0.1 Nucleated RBC % 0.0 Absolute Neutrophils 10.86 H Absolute Lymphocytes 2.09 Absolute Monocytes 1.09 H Absolute Eosinophils 0.04 Absolute Basophils 0.01 Sodium 143 Potassium 4.2 Chloride 105 Carbon Dioxide 28.0 Anion Gap 10.0 BUN 14 Creatinine 1.1 Est GFR (CKD-EPI 2020) 81.78 Glucose 118 H Calcium 9.0 Total Bilirubin 0.5 AST 23 ALT 41 Alkaline Phosphatase 157 H Total Protein 7.4 Albumin 3.7 10/30/23 14:00 Perirectal Surgical Culture - Pending 10/30/23 14:00 Perirectal Anaerobic Culture - Pending Preliminary micro results at discharge 10/30/23 14:00 Surgical Culture - Pending Perirectal 10/30/23 14:00 Anaerobic Culture - Pending Perirectal PFSH All Active Problems Perirectal abscess (Acute) Surgical History (Updated 10/31/23 @ 08:25 by Nurys Chisholm) Status post incision and drainage (~10/2023) Anorectal exam under anesthesia with incision and drainage of perianal abscess Social History Smoking/Tobacco Use Status: Former Tobacco Use Smoking risk assessment performed?: Yes Alcohol Intake: current Drug use: Daily Substance use type: marijuana Do you feel safe at home: Yes Do you feel safe in your relationship?: Yes Time Spent with Patient Time Spent with Patient: <45 minutes Time was spent: preparing to see the patient(eg.review tests), obtaining and/or reviewing separately otained hiistory and counseling the patient
== END 2023-10-31 10:45 | disposition home or self-care (01) ==
LOC: ER 12:49 → SUR 13:37 → MS 15:02
PROVIDERS: Admitting Provider Surgery; Emergency Provider Emergency Medicine; Visit Provider Surgery
PROC: (CPT 46050; principal; 2023-10-30 13:00)
DX: K61.2 Anorectal abscess (principal); F12.90 Cannabis use, unspecified, uncomplicated; Z87.891 Personal history of nicotine dependence
CPT/HCPCS: 46050; 36415; 80053; 85027; 96361; 96365; 96372; 99285; J1650; 74177; 85025; 87070; 87075; 87205; C9290; G0378; J0665; J1100; J2250; J2405; J2543; J2704; J3010

== ENCOUNTER 2023-11-03 13:11 | Outpatient (CLI) | payer MEDICAID, SELFPAY ==
[2023-11-03 10:28] LABS: Abs Immature Grans 0.03 10^3/uL (0.0-0.06); Absolute Basophil Count 0.04 10^3/uL (0.0-0.2); Absolute Eosinophil Count 0.14 10^3/uL (0.0-0.7); Absolute Lymphocyte Count 2.13 10^3/uL (1.2-3.4); Absolute Monocyte Count 0.56 10^3/uL (0.1-0.8); Absolute Neutrophil Count 4.89 10^3/uL (1.2-6.7); Basophils % 0.5 %; Eosinophils % 1.8 %; HCT 39.3 % (40.0-50.0); Immature Grans % 0.4 %; Lymphocytes % 27.3 %; MCH 31.1 pg (27.0-33.0); MCHC 33.1 % (32.0-36.0); MCV 94 fL (80-95); Monocytes % 7.2 %; Neutrophils % 62.8 %; Platelet Count 458 10^3/uL (130-400); RBC 4.18 10^6/uL (4.36-5.78); RDW 12.9 % (11.8-14.1); RDW-SD 44.5 fL; WBC 7.79 10^3/uL (4.4-10.8)
== END 2023-11-03 13:12 | disposition home or self-care (01) ==
LOC: LBO 13:11
PROVIDERS: Visit Provider Physical Therapy Assistant
DX: K61.1 Rectal abscess (principal)
CPT/HCPCS: 36415; 85025